=== PATIENT | female | born 1965 | race Caucasian/White ===

== ENCOUNTER → 2017-08-14 | Outpatient (CLI) | payer BC, OTHER ==
[2017-08-14 21:09] LABS: ALT 22 U/L (9-52); AST 22 U/L (14-36); Albumin 4.1 g/dL (3.5-5.0); Alkaline Phosphatase 67 U/L (38-126); Anion Gap 9 mmol/L; Blood Urea Nitrogen 13 mg/dL (7-17); Calcium 9.3 mg/dL (8.4-10.2); Carbon Dioxide 29 mmol/L (22-30); Chloride 102 mmol/L (98-107); Creatine Kinase 99 U/L (30-135); Glucose 85 mg/dL (74-99); Potassium 4.4 mmol/L (3.5-5.1); Sodium 140 mmol/L (137-145); Total Bilirubin 0.5 mg/dL (0.2-1.3); Total Protein 7.2 g/dL (6.3-8.2)
[2017-08-14 21:24] LABS: T4, Free (Free Thyroxine) 1.41 ng/dL (0.78-2.19)
[2017-08-15 11:51] LABS: Vitamin D 25 Hydroxy 33.1 ng/mL (30.0-100.0)
[2017-08-17 10:18] LABS: ANA Pattern Speckled
== END | disposition home or self-care (01) ==
LOC: MMGSC 09:44
PROVIDERS: ATTEND Family Medicine
DX: E03.9 Hypothyroidism, unspecified (principal); E55.9 Vitamin D deficiency, unspecified; R53.1 Weakness; M79.1 Myalgia
CPT/HCPCS: 36415; 80053; 82306; 82550; 82607; 84439; 84443; 86038; 86039

== ENCOUNTER → 2017-09-25 | Outpatient (CLI) | payer BC, OTHER ==
[2017-09-25 21:16] LABS: T4, Free (Free Thyroxine) 1.3 ng/dL (0.78-2.19)
== END ==
LOC: MMGSC 15:00
PROVIDERS: ATTEND Family Medicine
DX: E03.9 Hypothyroidism, unspecified (principal)
CPT/HCPCS: 36415; 84439; 84443